=== PATIENT | male | born 1960 | race Caucasian/White ===

== ENCOUNTER → 2022-05-03 | Emergency (ER) | payer OTHER ==
[~2022-05-03] VITALS: Ht 175.3 cm; Wt 76.7 kg
== END | disposition home or self-care (01) ==
LOC: ER 13:00
DX: S62.324A Displaced fracture of shaft of fourth metacarpal bone, right hand, initial encounter for closed fracture (principal); W19.XXXA Unspecified fall, initial encounter; Y93.9 Activity, unspecified; Y92.9 Unspecified place or not applicable; I10 Essential (primary) hypertension